=== PATIENT | male | born 1975 | race Two or more races ===

== ENCOUNTER 2018-09-24 19:42 | Emergency (ER) | payer OTHER ==
[~2018-09-24] VITALS: Ht 175.3 cm; Wt 79.4 kg
[2018-09-24] MEDS ORDERED: DEXAMETHASONE SOD PHOSPHATE 10 MG/ML VIAL ONE (20:11)
[2018-09-24] MEDS ORDERED: ONDANSETRON HCL/PF 4 MG/2 ML VIAL ONE (20:11)
[2018-09-24] MEDS ORDERED: HYDROMORPHONE 1 MG/1 ML DISP.SYRIN ONE (20:11)
--- NOTE | 2018-09-24 20:21 | NUR ---
RN NOTE PATIENT HAS BEEN PLACED IN BED 2. PATIENT IS A/A/OX3, NO SOB, NO CHEST PAIN AT THIS TIME . PATIENT IS COMPLAINING OF LOWER BACK AND LEFT LOWER LEG PAIN 9/10. PATIENT HAS WOUND ON LEFT LOER LEG, IV LINE IS RIGHT UPPER ARM PICC LINE PATIENT AND INTACT. KATZ CATHETER IS IN PLACE DRAINING YELLOW URINE ON GRAVITY. WILL CONTINUE TO MONITOR PATIENT CLOSELY.
[2018-09-24 20:22] LABS: BASOPHILS # (AUTO) 0.1 /CMM (0.0-0.2); BASOPHILS % (AUTO) 1.3 % (0.0-2.0); EOSINOPHILS % (AUTO) 1.3 % (0.0-6.0); HEMATOCRIT 29 % (39-51); LYMPHOCYTES # (AUTO) 2.1 /CMM (0.8-4.8); LYMPHOCYTES % (AUTO) 22.5 % (20.0-44.0); MEAN CORPUSCULAR HGB CONC 32 g/dl (31.0-36.0); MEAN CORPUSCULAR VOLUME 63 fL (80-96); MONOCYTES # (AUTO) 0.6 /CMM (0.1-1.30); MONOCYTES % (AUTO) 6.5 % (2.0-12.0); NEUTROPHILS # (AUTO) 6.4 /CMM (1.8-8.9); NEUTROPHILS % (AUTO) 68.4 % (43.0-81.0); PLATELET COUNT (AUTO) 547 /CMM (150-450); RED BLOOD CELL COUNT(AUTO) 4.53 MIL/uL (4.5-6.0); WHITE BLOOD COUNT (AUTO) 9.4 K/uL (4.3-11.0)
[2018-09-24] MEDS ORDERED: IV NS 0.9% 1,000 ML BAG IV ONE (20:30)
[2018-09-24] MEDS ORDERED: HYDROMORPHONE INJ 0.5 MG/0.5 ML SYRINGE IV ONE (20:30)
[2018-09-24] MEDS ORDERED: DEXAMETHASONE SOD PHOSPHATE 4 MG/ML VIAL IV ONE (20:30)
[2018-09-24] MEDS ORDERED: ONDANSETRON HCL/PF 4 MG/2 ML VIAL IV ONE (20:30)
[2018-09-24 20:32] LABS: CALCIUM, SERUM 8.5 mg/dL (8.5-10.1); CREATININE 1.2 mg/dL (0.6-1.3); POTASSIUM 2.9 mmol/L (3.5-5.1)
[2018-09-24 20:37] LABS: ALBUMIN 2.4 g/dL (3.4-5.0); BILIRUBIN,DIRECT 0.1 mg/dL (0.0-0.2); BILIRUBIN,TOTAL 0.2 mg/dL (0.2-1.0); TOTAL PROTEIN, SERUM 8.5 g/dL (6.4-8.2)
[2018-09-24 21:02] LABS: NEUTROPHILS % (MANUAL) 70 (42-76)
[2018-09-24 21:03] LABS: LYMPHOCYTES % (MANUAL) 25 % (16-48); MONOCYTES % (MANUAL) 5 % (0-11.0)
[2018-09-24] MEDS ORDERED: POTASSIUM CHLORIDE 20 MEQ TAB.PRT.SR PO ONE ×2 (21:30→21:32)
[2018-09-24] MEDS ORDERED: MORPHINE SULFATE INJ 2 MG/ML DISP.SYRIN IV ONE (21:30)
[2018-09-24] MEDS ORDERED: MORPHINE SULFATE INJ 2 MG/ML DISP.SYRIN ONE (21:36)
--- NOTE | 2018-09-24 21:41 | NUR ---
[facility] TO [facility] ETA [id number] TRIP# [id number]
[2018-09-25 00:50] VITALS: BP 131/60
--- NOTE | 2018-09-25 01:03 | NUR ---
PT TRANSPORTED BACK TO FACILTIY, PT LEFT INS TABLE CONDITION, PT AAOX4, PT SIGNED DC PAPERWORKS, REPORT GIVEN TO AMBULANCE STAFF.
== END 2018-09-25 01:06 | disposition home or self-care (01) ==
LOC: ER 19:44
DX: S81.802A Unspecified open wound, left lower leg, initial encounter (principal); M54.5 Low back pain; G89.29 Other chronic pain; F19.10 Other psychoactive substance abuse, uncomplicated; Z98.890 Other specified postprocedural states; X58.XXXA Exposure to other specified factors, initial encounter; Y93.89 Activity, other specified; Y92.89 Other specified places as the place of occurrence of the external cause; Y99.8 Other external cause status
CPT/HCPCS: 80048; 36415; 80076; 85025; 96374; 96375; 99283; J1100; J1170; J2270; J2405; J7030